=== PATIENT | male | born 1980 | race Caucasian/White ===

== ENCOUNTER 2022-03-20 10:11 | Outpatient (CLI) | payer MEDICARE, MEDICAID ==
[2022-03-20] MEDS ORDERED: Iopamidol 300 61% 100 ML VIAL FS ONE (10:20)
== END 2022-03-20 10:12 | disposition home or self-care (01) ==
LOC: CSHCT 10:11
PROVIDERS: ATTEND Internal Medicine Cardiovascular Disease
DX: I82.4Y2 Acute embolism and thrombosis of unspecified deep veins of left proximal lower extremity (principal); Z95.828 Presence of other vascular implants and grafts; Z90.49 Acquired absence of other specified parts of digestive tract
CPT/HCPCS: 74177; Q9967

== ENCOUNTER 2023-07-26 08:47 | Outpatient (CLI) | payer MEDICARE, MEDICAID | END 2023-07-26 08:48 | disposition home or self-care (01) | LOC: CSHWCC 08:47 | PROVIDERS: ATTEND Nurse Practitioner Family | DX: I87.313 Chronic venous hypertension (idiopathic) with ulcer of bilateral lower extremity (principal); L97.322 Non-pressure chronic ulcer of left ankle with fat layer exposed; L97.222 Non-pressure chronic ulcer of left calf with fat layer exposed; M06.9 Rheumatoid arthritis, unspecified ==

== ENCOUNTER 2023-08-02 11:15 | Outpatient (CLI) | payer MEDICARE, MEDICAID | END 2023-08-02 11:16 | disposition home or self-care (01) | LOC: CSHWCC 11:15 | PROVIDERS: ATTEND Nurse Practitioner Family | DX: I87.313 Chronic venous hypertension (idiopathic) with ulcer of bilateral lower extremity (principal); L97.322 Non-pressure chronic ulcer of left ankle with fat layer exposed; L97.222 Non-pressure chronic ulcer of left calf with fat layer exposed; M06.9 Rheumatoid arthritis, unspecified | CPT/HCPCS: 11042 ==

== ENCOUNTER 2023-08-09 12:09 | Outpatient (CLI) | payer MEDICARE, MEDICAID | END 2023-08-09 12:10 | disposition home or self-care (01) | LOC: CSHWCC 12:09 | PROVIDERS: ATTEND Preventive Medicine Undersea and Hyperbaric Medicine | DX: I87.313 Chronic venous hypertension (idiopathic) with ulcer of bilateral lower extremity (principal); L97.322 Non-pressure chronic ulcer of left ankle with fat layer exposed; L97.222 Non-pressure chronic ulcer of left calf with fat layer exposed; M06.9 Rheumatoid arthritis, unspecified | CPT/HCPCS: 29581 ==

== ENCOUNTER 2023-08-16 16:00 | Outpatient (CLI) | payer MEDICARE, MEDICAID | END 2023-08-16 16:01 | disposition home or self-care (01) | LOC: CSHWCC 16:00 | PROVIDERS: ATTEND Nurse Practitioner Family | DX: I87.313 Chronic venous hypertension (idiopathic) with ulcer of bilateral lower extremity (principal); L97.322 Non-pressure chronic ulcer of left ankle with fat layer exposed; M06.9 Rheumatoid arthritis, unspecified ==

== ENCOUNTER 2023-08-30 12:45 | Outpatient (CLI) | payer MEDICARE, MEDICAID | END 2023-08-30 12:46 | disposition home or self-care (01) | LOC: CSHWCC 12:45 | PROVIDERS: ATTEND Nurse Practitioner Family | DX: I87.313 Chronic venous hypertension (idiopathic) with ulcer of bilateral lower extremity (principal); L97.322 Non-pressure chronic ulcer of left ankle with fat layer exposed; L97.919 Non-pressure chronic ulcer of unspecified part of right lower leg with unspecified severity; M06.9 Rheumatoid arthritis, unspecified | CPT/HCPCS: 99212; G0463 ==

== ENCOUNTER 2024-06-08 14:44 | Outpatient (CLI) | payer MEDICARE, MEDICAID | END 2024-06-08 14:45 | disposition home or self-care (01) | LOC: CSHWCC 14:44 | PROVIDERS: ATTEND Nurse Practitioner Family | DX: I87.332 Chronic venous hypertension (idiopathic) with ulcer and inflammation of left lower extremity (principal); L97.822 Non-pressure chronic ulcer of other part of left lower leg with fat layer exposed; L97.812 Non-pressure chronic ulcer of other part of right lower leg with fat layer exposed; M06.9 Rheumatoid arthritis, unspecified; Z86.718 Personal history of other venous thrombosis and embolism ==